=== PATIENT | female | born 1975 | race Caucasian/White ===

== ENCOUNTER 2019-04-11 07:56 | Emergency (ER) | payer MEDICAID, OTHER ==
[~2019-04-11] VITALS: Ht 162.6 cm; Wt 89.0 kg
[~2019-04-11 07:56] MED LIST: BENZ-6 PO; CIPR-173; MED4DP PO; PROM6.2515 PO; PSEU-79 PO; [UNRECOGNIZED DRUG - CODE]; [UNRECOGNIZED DRUG - REMARK]
[2019-04-11 07:57] VITALS: BP 145/66; PULSE 90; RESP 18; Ht 162.6 cm; Wt 89.0 kg
--- NOTE | 2019-04-11 15:39 | ERD ---
ER Documentation Chief Complaint Chief Complaint cough x 1 mos HPI 43-year-old female presenting with cough. Patient had this cough for the last month and denies any fevers. She states that the cough is very dry and has had no medications for her symptoms. She denies any shortness of breath or chest pain. Denies leg swelling. Medical history Denies. NKDA. Surgical history cholecystectomy appendectomy and removal of the kidney cyst. Social history denies ROS All systems reviewed and are negative except as per history of present illness. Medications Home Meds Active Scripts Pseudoephedrine Hcl* (Suphedrin*) 30 Mg Tablet, 30 MG PO Q6 PRN for CONGESTION, #30 TAB Prov:AMY KWON PA-C 04/11/19 Methylprednisolone* (Medrol* DOSE PACK) 4 Mg/Dose-Pack Tab.ds.pk, 4 MG PO . DIRECTED, #1 PACKET Prov:AMY KWON PA-C 04/11/19 Promethazine Hcl* (Promethazine Hcl* Syrup) 6.25 Mg/5 Ml Syrup, 6.25 MG PO Q6H PRN for COUGH, #100 ML Prov:AMY KWON PA-C 04/11/19 Benzonatate* (Tessalon Perle*) 100 Mg Capsule, 100 MG PO Q8H PRN for COUGH, #30 CAP Prov:AMY KWON PA-C 04/11/19 Reported Medications Ciprofloxacin Hcl (Cipro) 500 Mg Tablet 03/26/10 Belladonna Alkaloids/Phenobarb (Antispas Tablet) 16.2 Mg Tablet 03/26/10 [Meds Unknown] No Conflict Check 03/25/10 Allergies Allergies: Coded Allergies: No Known Allergies (Verified Allergy, Mild, 04/11/19) PMhx/Soc History of Surgery: Yes (APPENDECTOMY, CHOLECYSTECTOMY, TONSILLECTOMY) Anesthesia Reaction: No Hx Neurological Disorder: No Hx Respiratory Disorders: No Hx Cardiac Disorders: No Hx Psychiatric Problems: No Hx Miscellaneous Medical Probl: No Hx Alcohol Use: Yes (OCCASIONAL) Hx Substance Use: No Hx Tobacco Use: No Smoking Status: Never smoker FmHx Family History: No diabetes, No coronary disease, No other Physical Exam Vitals Vital Signs Date Temp Pulse Resp B/P (MAP) Pulse Ox O2 O2 Flow FiO2 Time Delivery Rate 04/11/19 97.7 90 18 145/66 99 07:57 (92) Physical Exam GENERAL: The patient is well-appearing, well-nourished, in no acute distress HEENT: Atraumatic. Conjunctivae are pink. Pupils equal, round, and reactive to light. There is no scleral icterus. Tympanic membranes clear bilaterally. Oropharynx clear. NECK: C-spine is soft and supple. There is no meningismus. There is no cervical lymphadenopathy. CHEST: Clear to auscultation bilaterally. There are no rales, wheezes or rhonchi. HEART: Regular rate and rhythm. No murmurs, clicks, rubs or gallops. Procedures/[facility] DI[facility]ST[facility] IMAGING REPORT Patient: SUMA DURAN : 1975 Age: 43 Sex: F MR #: [id number] DOS: 04/11/19 0807 Ordering MD: MICHAELLE KWON PA-C Location: [facility] Room/Bed: PROCEDURE: XR Chest. TECHNIQUE: Single frontal radiograph. CLINICAL INDICATION: Cough COMPARISON: None. FINDINGS: Normal lung volumes. Hemidiaphragms are sharply defined. No evidence of focal consolidation, pneumothorax, or pleural effusion. Cardiomediastinal silhouette is within normal limits. Thoracic spondylosis. No evidence of acute osseous abnormality within the visualized thorax. Overlying soft tissues are equally unremarkable. IMPRESSION: No evidence of acute cardiopulmonary process. MDM: 43-year-old female presenting with cough. I have low suspicion for pneumonia. I have low suspicion for respiratory distress or hypoxia. Patient is discharged with supportive medications and told to follow-up with primary care within 1 to 2 days for close evaluation. Patient is told if symptoms change or worsen to return immediately to the ER. All questions answered at discharge Departure Diagnosis: Primary Impression: Cough Condition: Stable Patient Instructions: Cough, Chronic, Uncertain Cause, (Adult) Referrals: MATHEW MCCABE MD Additional Instructions: FOLLOW UP WITH YOUR PRIMARY CARE PHYSICIAN TOMORROW.Return to this facility if you are not improving as expected. AMY KWON PA-C Apr 11, 2019 15:39
== END 2019-04-11 09:21 | disposition home or self-care (01) ==
LOC: FTE 07:56
DX: R05 Cough (principal)
CPT/HCPCS: 71045